=== PATIENT | male | born 1965 | race Caucasian/White ===

== ENCOUNTER 2025-04-16 09:08 | Emergency (ER) | payer MEDICAID ==
[~2025-04-16] VITALS: Ht 170.2 cm; Wt 119.0 kg
[2025-04-16 09:13] VITALS: O2SAT 98
[2025-04-16 09:20] VITALS: BP 136/103; PULSE 54; RESP 18; TEMP 36.7; O2SAT 99
[2025-04-16] MEDS ORDERED: SULF1TAB48 MT (09:53)
== END 2025-04-16 10:11 | disposition home or self-care (01) ==
LOC: ER 09:08
DX: L02.413 Cutaneous abscess of right upper limb (principal); Z95.1 Presence of aortocoronary bypass graft; I11.0 Hypertensive heart disease with heart failure; I50.9 Heart failure, unspecified; Z95.5 Presence of coronary angioplasty implant and graft; Z79.899 Other long term (current) drug therapy
CPT/HCPCS: 10060; 99283; Z7610 ×2